=== PATIENT | female | born 1965 | race Caucasian/White ===

== ENCOUNTER 2022-05-25 09:35 | Outpatient (CLI) | payer OTHER | END 2022-05-25 23:59 | disposition home or self-care (01) | LOC: MLB 09:35 → EDSTATUS 05-27 14:10 | PROVIDERS: ATTEND Internal Medicine Gastroenterology | DX: Z01.812 Encounter for preprocedural laboratory examination (principal); Z20.822 Contact with and (suspected) exposure to COVID-19 ==